=== PATIENT | female | born 1985 | race African-American/Black ===

== ENCOUNTER 2020-03-24 06:09 | Day surgery (SDC) | payer OTHER ==
[2020-03-23 15:04] VITALS: BMI 20.9
[2020-03-24] MEDS ORDERED: FLU VACCINE (FLULAVAL) PF 60 MCG/0.5 ML SYRINGE 2020-2021 IM ONE (06:58)
[2020-03-24] MEDS ORDERED: CEFAZOLIN 2 GM/D5W 2 GM/50 ML ML IVPB ONE (07:00)
[2020-03-24] MEDS ORDERED: BUPIVACAINE HCL 50 ML ONE (07:30)
[2020-03-24] MEDS ORDERED: DEXAMETHASONE SOD PHOSPHATE/PF 10 MG/ML SDV ONE (07:30)
[2020-03-24] MEDS ORDERED: MIDAZOLAM HCL 2 MG/2 ML SINGLE DOSE VIAL ONE ×3 (07:31→07:33)
[2020-03-24] MEDS ORDERED: LIDOCAINE HCL/PF 2% SDV 5ML VIAL ONE (07:32)
[2020-03-24] MEDS ORDERED: ROCURONIUM BROMIDE 50 MG/5 ML SYRINGE ONE (07:32)
[2020-03-24] MEDS ORDERED: DEXAMETHASONE SOD PHOSPHATE 4 MG/1 ML VIAL ONE (07:32)
[2020-03-24] MEDS ORDERED: KETOROLAC TROMETHAMINE 30 MG/1 ML VIAL ONE ×2 (07:32→11:16)
[2020-03-24] MEDS ORDERED: ceFAZolin SODIUM 1 GM VIAL ONE ×2 (07:32→17:02)
[2020-03-24] MEDS ORDERED: SUCCINYLCHOLINE CHLORIDE 200 MG/10 ML SYRINGE ONE (07:33)
[2020-03-24] MEDS ORDERED: PROPOFOL 20 ML ONE ×2 (07:33)
[2020-03-24] MEDS ORDERED: HYDROmorphone HCl 2 MG/ML VIAL ONE (08:00)
[2020-03-24] MEDS ORDERED: HEPARIN NA (PORCINE) 5,000 UNITS/ML 1ML VIAL ONE (08:19)
[2020-03-24] MEDS ORDERED: ceFAZolin SODIUM 1 GM VIAL IVPB ONE (08:46)
[2020-03-24] MEDS ORDERED: ACETAMINOPHEN 1000 MG/100 ML VIAL (NON FORMULARY) IVPB ONE (10:16)
[2020-03-24] MEDS ORDERED: oxyCODONE HCL 5 MG TABLET PO PRN ×3 (10:16→11:14)
[2020-03-24] MEDS ORDERED: ONDANSETRON 4 MG/2 ML VIAL IVPUSH PRN ×2 (10:16→11:14)
[2020-03-24] MEDS ORDERED: SIMETHICONE 80 MG TAB.CHEW (FP) PO PRN (11:14)
[2020-03-24] MEDS ORDERED: DOCUSATE SODIUM 100 MG CAPSULE (FP) PO PRN (11:14)
[2020-03-24] MEDS ORDERED: BISACODYL 5 MG TABLET.DR (FP) PO PRN (11:14)
[2020-03-24] MEDS: ACETAMINOPHEN 1000 MG/100 ML VIAL (NON FORMULARY) IVPB SCH ×3 (12:10→21:39)
[2020-03-24] MEDS: LACTATED RINGERS SOLUTION 1,000 ML IV SCH ×2 (15:15→15:37)
[2020-03-24] MEDS ORDERED: CEFAZOLIN 1 GM/D5W 1 GM/50 ML BAG IVPB SCH (17:00)
[2020-03-24] MEDS ORDERED: DEXTROSE 5%-WATER - 50 ML IVPB ONE (17:03)
[2020-03-24] MEDS: CEFAZOLIN 1 GM in DEXTROSE 5%-WATER - 50 ML IVPB SCH (17:05)
[2020-03-24] MEDS: KETOROLAC TROMETHAMINE 30 MG/1 ML VIAL IVPUSH SCH (17:36)
[2020-03-24 20:01] LABS: HEMATOCRIT 39.2 % (32.4-45.2); HEMOGLOBIN 12.7 GM/dL (10.7-15.3); MCH 26.3 pg (25.7-33.7); MCHC 32.3 g/dl (32.0-36.0); MEAN CELL VOLUME 81.4 fl (80-96); MEAN PLT VOLUME 9.3 fl (7.5-11.1); PLATELET COUNT 185 K/MM3 (134-434); RBC 4.82 M/mm3 (3.60-5.2); RDW 14.2 % (11.6-15.6); WHITE BLOOD COUNT 10.8 K/mm3 (4.0-10.0)
[2020-03-24] MEDS ORDERED: oxyCODONE HCL 10 MG SUSTAINED ACTING TABLET PO SCH (22:00)
[2020-03-25] MEDS ORDERED: ceFAZolin SODIUM 1 GM VIAL ONE (01:08)
[2020-03-25] MEDS ORDERED: DEXTROSE 5%-WATER - 50 ML IVPB ONE (01:08)
[2020-03-25] MEDS: KETOROLAC TROMETHAMINE 30 MG/1 ML VIAL IVPUSH SCH ×2 (01:11→05:52)
[2020-03-25] MEDS: CEFAZOLIN 1 GM in DEXTROSE 5%-WATER - 50 ML IVPB SCH (01:12)
[2020-03-25] MEDS: ACETAMINOPHEN 1000 MG/100 ML VIAL (NON FORMULARY) IVPB SCH ×2 (04:18→11:17)
[2020-03-25] MEDS ORDERED: ENOXAPARIN NA (PORCINE) 40 MG/0.4 ML DISP.SYRIN SQ SCH (10:00)
[2020-03-25] MEDS ORDERED: HYDROXYCHLOROQUINE SO4 200 MG TABLET (FP) PO SCH (10:00)
[2020-03-25] MEDS ORDERED: PT OWN MED DRAWER 7, Y5N ONE (11:07)
[2020-03-25] MEDS ORDERED: ACETAMINOPHEN 325 MG TABLET (FP) PO SCH (12:00)
[2020-03-25 13:12] VITALS: BP 119/75; PULSE 64; TEMP 98.8
[2020-03-27] MEDS ORDERED: ACETAMINOPHEN 325 MG TABLET (FP) PO PRN (10:00)
== END 2020-03-25 12:45 | disposition home or self-care (01) ==
LOC: JASU-SURG 06:09 → JASUSAT 06:09 → J8W 15:37 → JASUSAT 03-25 12:45
PROVIDERS: ATTEND Specialist
PROC: 0UT9FZZ Resection of Uterus, Via Natural or Artificial Opening With Percutaneous Endoscopic Assistance (ICD-10-PCS; 2020-03-24)
PROC: 0UT7FZZ Resection of Bilateral Fallopian Tubes, Via Natural or Artificial Opening With Percutaneous Endoscopic Assistance (ICD-10-PCS; 2020-03-24)
PROC: 0UT9FZZ Resection of Uterus, Via Natural or Artificial Opening With Percutaneous Endoscopic Assistance (ICD-10-PCS; principal; 2020-03-24 08:00)
PROC: 0UT7FZZ Resection of Bilateral Fallopian Tubes, Via Natural or Artificial Opening With Percutaneous Endoscopic Assistance (ICD-10-PCS; 2020-03-24 08:00)
DX: D25.9 Leiomyoma of uterus, unspecified (principal); N92.0 Excessive and frequent menstruation with regular cycle
CPT/HCPCS: 36415; 81025; 85027; 88307-TC; 94760; J0131; J1644